=== PATIENT | male | born 1965 ===

== ENCOUNTER 2024-04-13 09:06 | Outpatient (CLI) | payer OTHER | END 2024-04-13 09:19 | disposition home or self-care (01) | LOC: SONOGRAMA 09:06 | PROVIDERS: ATTEND Specialist | DX: K40.90 Unilateral inguinal hernia, without obstruction or gangrene, not specified as recurrent (principal) ==

== ENCOUNTER 2024-05-24 07:06 | Day surgery (SDC) | payer OTHER ==
[2024-05-17 08:45] LABS: HEMATOCRIT 37.6 % (39.0-48.0); HEMOGLOBIN 12.5 g/dL (13-16.00); MEAN CELL VOLUME 85.5 fL (80.0-100.00); MEAN CORPUSCULAR HEMOGLOBIN 28.5 pg (27.00-32.0); MEAN CORPUSCULAR HGB CONC 33.3 g/dl (32.0-36.0); PLATELET COUNT 182 K/uL (150-450)
[2024-05-17 09:00] VITALS: BP 119/79
[2024-05-17 09:13] LABS: URINE APPEARANCE Clear; URINE BILIRRUBIN Negative (NEGATIVE); URINE BLOOD Negative; URINE COLOR Yellow; URINE GLUCOSE Negative (NEGATIVE); URINE KETONE Negative (NEGATIVE); URINE LEUKOCYTE Negative; URINE NITRATE Negative; URINE PROTEIN Negative (NEGATIVE); URINE UROBILINOGEN 0.2 E.U./dl
[2024-05-17 09:20] LABS: URINE BACTERIA 6.2 uL (0.0-1933); URINE RBC 7.4 uL (0.0-20.8)
[2024-05-17 09:21] LABS: INR 1.01; PARTIAL THROMBOPLASTIN TIME 34.2 SECONDS (22.0-34.0)
[2024-05-17 09:23] LABS: URINE EPITHELIAL CELLS 0.7 uL (0.0-38.8); URINE WBC 1.2 uL (0.0-23.2)
[2024-05-17 09:40] LABS: ALBUMIN 3.7 gm/dL (3.4-5.0); BILIRUBIN TOTAL 0.56 mg/dL (0.3-1.2); CALCIUM 9.1 mg/dL (8.5-10.1); CREATININE SERUM 1.16 mg/dL (0.70-1.30); GFR 64.22; GLOBULINA 2.7 G/DL (2.4-3.5); POTASSIUM 5.12 mEq/L (3.5-5.1); TOTAL PROTEIN 6.4 gm/dL (6.4-8.2)
[~2024-05-24] VITALS: Ht 185.4 cm; Wt 117.0 kg
[~2024-05-24 07:06] MED LIST: AVALIDE 300-121 EACH PO; CARVEDILOL12.5 M1 PO; CRESTOR40 MG PO; HORIZANT300 MG PO; NORVASC5 MG PO; SKELAXIN PO; ZETIA10 MG PO
[2024-05-24] MEDS ORDERED: BUPIVACAINE HCL/MPF 0.5% 30ML VIAL ONE (11:50)
[2024-05-24] MEDS ORDERED: CEFAZOLIN SODIUM 1,000 MG VIAL ONE ×2 (11:51→15:50)
[2024-05-24] MEDS ORDERED: CEFAZOLIN SODIUM 1,000 MG VIAL IV ONE (12:15)
[2024-05-24] MEDS ORDERED: BUPIVACAINE HCL 30 ML VIAL IJ ONE (12:15)
[2024-05-24] MEDS ORDERED: CEFAZOLIN SODIUM 1,000 MG VIAL IV SCH (14:30)
[2024-05-24] MEDS ORDERED: FAMOTIDINE/PF 20 MG/10 ML SYRINGE IV SCH (14:30)
[2024-05-24] MEDS ORDERED: ONDANSETRON HCL 2 MG/ML VIAL ONE (15:11)
[2024-05-24] MEDS ORDERED: ONDANSETRON HCL 2 MG/ML VIAL IV ONE (15:15)
[2024-05-24] MEDS ORDERED: MORPHINE SULFATE 4 MG/ML VIAL IV ONE (15:40)
[2024-05-24] MEDS ORDERED: FAMOTIDINE/PF 20 MG/2 ML VIAL ONE (15:51)
== END 2024-05-24 17:30 | disposition home or self-care (01) ==
LOC: CIR.AMB 07:06
PROVIDERS: ATTEND Specialist
DX: K40.90 Unilateral inguinal hernia, without obstruction or gangrene, not specified as recurrent (principal); I10 Essential (primary) hypertension; E78.00 Pure hypercholesterolemia, unspecified
CPT/HCPCS: 49505; C1781